=== PATIENT | female | born 1945 | race Caucasian/White ===

== ENCOUNTER → 2017-04-07 | Outpatient (CLI) | payer OTHER | LOC: BMCIMAGING 16:44 | PROVIDERS: ATTEND Family Medicine | DX: S69.92XA Unspecified injury of left wrist, hand and finger(s), initial encounter (principal); W19.XXXA Unspecified fall, initial encounter ==

== ENCOUNTER 2017-04-28 14:55 | Emergency (ER) | payer OTHER ==
[2017-04-28 15:06] VITALS: TEMP 97.7
--- NOTE | 2017-04-28 15:17 | CPEKG ---
Heart Rate: 74 RR Interval: 811 P-R Interval: 180 QRSD Interval: 92 QT Interval: 400 QTC Interval: 444 P Neola: 61 QRS Neola: -5 T Wave Neola: 38 EKG Severity - NORMAL ECG - EKG Impression: SINUS RHYTHM Electronically Signed By: Tresa Nuñez 28-Apr-2017 22:58:52
--- NOTE | 2017-04-28 15:39 | EDPHY ---
HPI/HX/ROS/PE/MDM Narrative: CHIEF COMPLAINT: Lightheadedness for 3 weeks HISTORY OF PRESENT ILLNESS: This patient is a 72 year old female complaining of intermittent lightheadedness over the last three weeks. She reports that she has these intermittent episodes where she has a wave of not feeling quite right, best described as feeling lightheaded, but denies any feeling of spinning and states she does not feel particularly unbalanced. She does not feel near syncopal. She denies chest pain, shortness of breath, or palpitations during these episodes. She reports she usually notes these episodes while standing, and that she promptly sits down and they resolve within an hour. She reports she fell three weeks ago, but states she thinks her symptoms began prior to the fall. She states she generally takes Forteo injections for osteoporosis, but she discontinued these on 04/25/17 because she noted dizziness was a potential side effect. No fever, chills, chest pain, shortness of breath, palpitations, vomiting, diarrhea, urinary complaints, headache. REVIEW OF SYSTEMS: Aside from elements discussed in the HPI, a comprehensive 10-point review of systems was reviewed and is negative. PAST MEDICAL HISTORY: Osteoporosis (Forteo), Hypertension (Valsartan), Tinnitus SOCIAL HISTORY: Lives in [facility]. PCP Dr. Christopher Smith VITAL SIGNS: Reviewed by me GENERAL: Well-developed, well-nourished, pleasant, conversant, resting comfortably in no respiratory distress. HEENT: Atraumatic. Eyes: Slight nystagmus on leftward gaze. No icterus, no injection. Mouth: moist mucous membranes. No erythema or lesions. Neck: supple with no adenopathy. LUNGS: Clear to auscultation bilaterally, no wheezes, rhonchi or rales. CARDIAC: Regular rate and rhythm, no rubs, murmurs or gallops. ABDOMEN: Soft, nontender, nondistended, bowel sounds normal. BACK: No CVA tenderness. EXTREMITIES: No trauma. No edema. Range of motion is normal throughout. NEURO: Alert and oriented, grossly nonfocal. Cranial nerves intact. Finger to nose and heel to thompson normal. SKIN: Warm and dry, no rash. PSYCHIATRIC: Normal mentation, no agitation. Portions of this note were transcribed by a medical engineer. I personally performed a history, physical exam, medical decision making, and confirmed accuracy of information the transcribed note. ED Course: This patient is a 72 year old female presenting with a 3 week history of intermittent lightheadedness. Physical exam reveals mild nystagmus with leftward gaze, but is otherwise unremarkable. Plan for labs including CBC, CHEM , Troponin, and UA. Plan for head CT to assess for acute processes. Labs unremarkable. CT head shows no evidence of acute processes. Plan for MRI brain to further evaluate cerebellar processes. 18:[address] Lopes, radiologist. MRI brain shows no evidence of acute processes. 18:53 Spoke with Hussein Johnson regarding this patient. She will follow up with Dr. Kaur at [facility] next week. Plan to discharge home in good condition with instructions to follow up with cardiology. Return precautions discussed. The patient is comfortable with this plan. MDM: 72-year-old female with 3 weeks of intermittent episodes of "lightheadedness" without vertiginous symptoms, without palpitations, without near syncopal symptoms, and without any syncope. Differential for these lightheaded episodes include peripheral and central causes of vertigo, cardiac arrhythmias, cardiac ischemia, electrolyte disturbances, neurologic causes, hypertension, orthostatic causes including dehydration, and blood loss. Evaluation included labs, troponin, head CT, MRI. Although these do not demonstrate a clear etiology. Patient was referred to Cardiology. Her course was discussed with Brian Lane, on-call for [facility]. Of note patient's blood pressure was noted to be elevated during her emergency department course. She also notes that it has been high for the last several weeks. She was advised to begin taking her valsartan 2 times a day and to continue continue to monitor blood pressure. - Data Points Imaging Results: Head CT Impression: Stable and negative. Brain MRI Impression: Normal. Specifically no evidence for a cerebellar infarction. Imaging: Discussed imaging studies w/ call centre supervisor Radiologist Laboratory Results: Laboratory Results 04/28/17 15:26 04/28/17 15:26 General Time Seen by Provider: 04/28/17 15:26 Initial Vital Signs: Initial Vital Signs Temperature (C) 36.5 C 04/28/17 15:02 Heart Rate 79 04/28/17 15:02 Respiratory Rate 18 04/28/17 15:02 Blood Pressure 176/110 H 04/28/17 15:02 O2 Sat (%) 95 04/28/17 15:02 O2 Delivery Mode Room Air O2 (L/minute) 2 Allergies/Adverse Reactions: bees Allergy (Uncoded 05/22/13 15:20) Home Medications: Medication Instructions Recorded Diovan Unk 05/22/13 Vitamins Unk 05/22/13 Forteo 04/28/17 Departure - Departure Disposition: Home, Routine, Self-Care Clinical Impression: Intermittent lightheadedness Condition: Good Instructions: Lightheadedness (ED) Additional Instructions: 1. Follow up with cardiology at the [facility] next week for further evaluation of your lightheadedness. 2. Double your dosage of Valsartan until evaluation by a inspector type - take one in the morning and one in the evening. 2. Return to the emergency department for severe headache, weakness or numbness on one side of your body, slurred speech, chest pain, difficulty breathing, or other worsening of condition. Referrals: Christopher Smith MD [Primary Care Provider] - As per Instructions Sacha Kaur MD [Medical Doctor] - As per Instructions Report Scribed for: Tresa Nuñez Report Scribed by: Elinor Candelario Date of Report: 04/28/17 Time of Report: 16:09
[2017-04-28 15:48] LABS: ANION GAP 12 mEq/L (8-16); CALCIUM 10.9 mg/dL (8.5-10.4); CARBON DIOXIDE 24 mEq/l (22-31); CHLORIDE 104 mEq/L (97-110); CREATININE 0.7 mg/dL (0.6-1.0); GLOMERULAR FILTRATION RATE > 60; GLUCOSE 89 mg/dL (70-100); POTASSIUM 3.6 mEq/L (3.5-5.2); SODIUM 140 mEq/L (134-144)
[2017-04-28 15:50] LABS: % IMMATURE GRANULYOCYTES 0.1 % (0.0-1.1); ABSOLUTE IMMATURE GRANULOCYTES 0.01 10^3/uL (0.00-0.10); ADD DIFF? NO; ADD MORPH? NO; ADD SCAN? NO; ATYPICAL LYMPHOCYTE FLAG 0 (0-99); FRAGMENT RBC FLAG 0 (0-99); HEMATOCRIT 44.3 % (38.0-47.0); HEMOGLOBIN 15.7 g/dL (12.6-16.3); LEFT SHIFT FLG 0 (0-99); LIPEMIA HEMOLYSIS FLAG 90 (0-99); MEAN CELL HEMOGLOBIN 32.3 pg (27.9-34.1); MEAN CELL HEMOGLOBIN CONCENTR. 35.4 g/dL (32.4-36.7); MEAN CELL VOLUME 91.2 fL (81.5-99.8); MEAN PLATELET VOLUME 9.8 fL (8.7-11.7); PLATELET CLUMPS FLAG 0 (0-99); PLATELET COUNT 330 10^3/uL (150-400); RED BLOOD CELL COUNT 4.86 10^6/uL (4.18-5.33); RED CELL DISTRIBUTION WIDTH 12.6 % (11.5-15.2)
[2017-04-28 16:00] LABS: TROPONIN I < 0.012 ng/mL (0-0.034)
[2017-04-28 16:22] VITALS: RESP 16
[2017-04-28 18:57] VITALS: BP 156/100; PULSE 72; O2SAT 95
== END 2017-04-28 19:11 | disposition home or self-care (01) ==
DX: R42 Dizziness and giddiness (principal); I10 Essential (primary) hypertension

== ENCOUNTER → 2017-10-13 | Outpatient (CLI) | payer OTHER | LOC: BMCIMAGING 12:19 | PROVIDERS: ATTEND Obstetrics & Gynecology | DX: Z12.31 Encounter for screening mammogram for malignant neoplasm of breast (principal) | CPT/HCPCS: G0202 ==

== ENCOUNTER → 2017-10-18 | Outpatient (CLI) | payer OTHER | LOC: BMCIMAGING 10:12 | PROVIDERS: ATTEND Internal Medicine | DX: R92.8 Other abnormal and inconclusive findings on diagnostic imaging of breast (principal) | CPT/HCPCS: G0206 ==

== ENCOUNTER → 2018-10-23 | Outpatient (CLI) | payer OTHER | LOC: FIMAGING 13:19 | PROVIDERS: ATTEND Internal Medicine | DX: Z12.31 Encounter for screening mammogram for malignant neoplasm of breast (principal); Z80.3 Family history of malignant neoplasm of breast ==

== ENCOUNTER → 2019-02-28 | Outpatient (CLI) | payer OTHER | LOC: FIMAGING 10:10 | PROVIDERS: ATTEND Internal Medicine Endocrinology, Diabetes & Metabolism | DX: Z13.820 Encounter for screening for osteoporosis (principal); M85.89 Other specified disorders of bone density and structure, multiple sites ==